=== PATIENT | male | born 1995 | race Caucasian/White ===

== ENCOUNTER 2018-08-24 20:07 | Emergency (ER) | payer MEDICAID ==
[2018-08-24] MEDS ORDERED: Amoxicillin/Clavulanate K 875-125 MG Tab ONE (20:50)
[2018-08-24] MEDS ORDERED: Lidocaine 1% with EPINEPHrine 1:100,000 50 ML MDV ONE (20:50)
[2018-08-24] MEDS ORDERED: Diphtheria,Pertussis(Acell),Tetanus Vaccine 0.5 ML SDV inactive IM ONE (23:22)
--- NOTE | 2018-08-24 23:55 | EDM.PDOC ---
ED HPI GENERAL MEDICAL PROBLEM - General Chief Complaint: General Stated Complaint: DOG BITE Time Seen by Provider: 08/24/18 20:30 Source of Information: Reports: Patient History Limitations: Reports: No Limitations - History of Present Illness INITIAL COMMENTS - FREE TEXT/NARRATIVE: Dictated ED ROS GENERAL - Review of Systems Review Of Systems: ROS reveals no pertinent complaints other than HPI. ED EXAM, GENERAL - Physical Exam Exam: See Below Free Text/Narrative:: Dictated Course - Orders/Labs/Meds Orders: Active Orders 24 hr Category Date Time Status Vaccines to be Administered [RC] PER UNIT ROUTINE Care 08/24/18 23:23 Active Meds: Medications Discontinued Medications Generic Name Dose Route Start Last Admin Trade Name Freq PRN Reason Stop Dose Admin Diphtheria/Tetanus/Acell Pertussis 0.5 ml 08/24/18 23:22 08/24/18 20:40 Boostrix IM 08/24/18 23:23 0.5 ml .ONCE ONE Administration Departure - Departure Time of Disposition: 21:35 Disposition: Home, Self-Care 01 Condition: Good Clinical Impression: Dog bite of face Qualifiers: Encounter type: initial encounter Qualified Code(s): S01.85XA - Open bite of other part of head, initial encounter - Discharge Information *PRESCRIPTION DRUG MONITORING PROGRAM REVIEWED*: Not Applicable Instructions: Laceration Care, Adult Forms: ED Department Discharge Additional Instructions: Return to clinic or ED to have sutures removed in 5 days. Return if increased swelling pain, redness or bleeding. Take Augmentin one tab twice a day for 4 days.
--- NOTE | 2018-08-25 00:11 | ER ---
REASON FOR EMERGENCY ROOM VISIT: Dog bite to the face. HISTORY OF PRESENT ILLNESS: This 23-year-old man was accidentally bitten by a Bull-mastiff that belonged to a friend. As he put it, they were horsing around, and the dog moved his face abruptly to the right and one of its canines bumped into the patient's right lower lip area creating a laceration. The patient claimed that it was not at all an aggressive move by the dog, and it was purely accidental. I asked him to call his friend who owns the dog, who assured him that the dog is completely up to date on his rabies shots. The dog has never displayed any aggressive behavior to his knowledge or to the knowledge of the homeowner association manager. The patient's last tetanus booster is unknown at this time. MEDICATIONS: None. ALLERGIES: NONE. PHYSICAL EXAMINATION: Examination of his face; he has a somewhat diagonal but clean laceration over the right lower lip area that crosses over the [place] border. It goes into the subcutaneous tissue but the laceration itself measures only approximately 5 mm in length. IMPRESSION: Right lower lip laceration secondary to inadvertent dog bite. PLAN: I recommended suture of this to which he agreed. I also advised him that we should give him a tetanus booster, and he agrees with this as well. The wound is cleaned with Hibiclens and less than 1 mL of 1% Xylocaine with epinephrine was used to achieve satisfactory local anesthesia. The laceration was approximated with two interrupted #6-0 monofilament nylon sutures taking care to be meticulous about aligning the [place] border of his lip. When the wound repair looked satisfactory, antibiotic ointment was applied over this. He was given a tetanus toxoid and a prescription for prophylactic antibiotics (Augmentin 875 mg b.i.d. x4 days). I explained to him the rationale behind prophylactic antibiotics in a dog bite to the face. He understands and agrees. He was instructed regarding the wound care as well as symptoms and signs of infection and that he should have his sutures removed in 5 to 6 days' time. All questions were answered. EDY /[id number]
== END 2018-08-24 20:56 | disposition home or self-care (01) ==
LOC: LB.ED 20:07
DX: S01.511A Laceration without foreign body of lip, initial encounter (principal); W54.0XXA Bitten by dog, initial encounter; Z23 Encounter for immunization
CPT/HCPCS: 12011; 90471; 90715; 99282; A9270